=== PATIENT | male | born 1995 | race Caucasian/White ===

== ENCOUNTER 2018-11-19 19:41 | Emergency (ER) | payer OTHER ==
[~2018-11-19] VITALS: Ht 177.8 cm; Wt 88.0 kg
[2018-11-19 19:48] VITALS: Ht 177.8 cm; Wt 88.0 kg
[2018-11-19 22:26] VITALS: BP 151/97
== END 2018-11-19 22:26 | disposition home or self-care (01) ==
LOC: ED 19:41
DX: R59.0 Localized enlarged lymph nodes (principal); R03.0 Elevated blood-pressure reading, without diagnosis of hypertension
CPT/HCPCS: Q0092

== ENCOUNTER 2019-07-28 20:54 | Emergency (ER) | payer OTHER ==
[~2019-07-28] VITALS: Ht 177.8 cm; Wt 88.5 kg
[2019-07-28 21:11] VITALS: Ht 177.8 cm; Wt 88.5 kg
[2019-07-28 22:26] VITALS: BP 148/85
== END 2019-07-28 22:26 | disposition home or self-care (01) ==
LOC: ED 20:54
DX: G43.909 Migraine, unspecified, not intractable, without status migrainosus (principal)